=== PATIENT | male | born 1945 | race Caucasian/White ===

== ENCOUNTER → 2023-06-22 11:58 | Outpatient (REF) | payer MEDICARE, OTHER, SELFPAY | LOC: MRI 3T 11:58 | PROVIDERS: ATTENDING PHYSICIAN Orthopaedic Surgery; FAMILY PHYSICIAN Registered Nurse | DX: M25.561 Pain in right knee (principal) | CPT/HCPCS: 73721 ==

== ENCOUNTER → 2023-06-25 07:20 | Outpatient (REF) | payer MEDICARE, OTHER, SELFPAY ==
[2023-06-25 08:02] LABS: % Basophils 0.7 % (0-2); % Immature Granulocytes 0.6 % (0-0.5); % Lymphocytes 27.3 % (20.5-51.1); % Monocytes 11.6 % (1.7-9.3); % Neutrophils 57.8 % (42.2-75.2); Absolute Eosinophils 0.1 10^3/uL (0-0.7); Absolute Lymphocytes 1.5 10^3/uL (1.2-3.4); Absolute Monocytes 0.6 10^3/uL (0.1-0.6); Absolute Neutrophils 3.1 10^3/uL (1.4-6.5); Mean Corp Hgb Conc. 34.1 g/dL (33.0-37.0); Mean Corpuscular Hgb 29.8 pg (27.0-31.0); Mean Corpuscular Volume 87.2 fL (80.0-94.0); Mean Platelet Volume 9.9 fL (7.4-10.4); Nucleated Red Blood Cells % 0 % (-); Platelet Count 165 10^3/uL (130-400); Red Cell Dist. Width 12.4 % (11.5-14.5); White Blood Cell Count 5.4 10^3/uL (4.8-10.8)
[2023-06-25 08:25] LABS: ALT (SGPT) 75 U/L (0-50); AST (SGOT) 46 U/L (17-59); Albumin 3.7 g/dl (3.5-5.0); Alkaline Phosphatase 86 U/L (38-126); Blood Urea Nitrogen 22 mg/dl (9-20); Calcium 9.6 mg/dl (8.4-10.2); Carbon Dioxide 31 mmol/L (22-30); Chloride 100 mmol/L (98-107); Glucose 103 mg/dl (70-99); Potassium 3.6 mmol/L (3.5-5.1); Sodium 139 mmol/L (135-145); Total Bilirubin 0.8 mg/dl (0.2-1.3); Total Protein 7.2 g/dl (6.3-8.2); eGFR 47.65
== END ==
LOC: REG 07:20
PROVIDERS: ATTENDING PHYSICIAN Internal Medicine Gastroenterology; FAMILY PHYSICIAN Registered Nurse
DX: K75.81 Nonalcoholic steatohepatitis (NASH) (principal)
CPT/HCPCS: 36415; 80053; 85025

== ENCOUNTER → 2023-08-06 13:04 | Outpatient (REF) | payer MEDICARE, OTHER, SELFPAY ==
[2023-08-06 13:52] LABS: % Basophils 0.5 % (0-2); % Eosinophils 0.7 % (0-6); % Immature Granulocytes 0.6 % (0-0.5); % Lymphocytes 16.6 % (20.5-51.1); % Neutrophils 71.6 % (42.2-75.2); Absolute Eosinophils 0.1 10^3/uL (0-0.7); Absolute Immature Granulocytes 0.1 10^3/uL (0-0.05); Absolute Lymphocytes 1.5 10^3/uL (1.2-3.4); Absolute Monocytes 0.9 10^3/uL (0.1-0.6); Absolute Neutrophils 6.3 10^3/uL (1.4-6.5); Hemoglobin 14.2 g/dL (13.0-18.0); Mean Corp Hgb Conc. 33.8 g/dL (33.0-37.0); Mean Corpuscular Hgb 29.2 pg (27.0-31.0); Mean Corpuscular Volume 86.4 fL (80.0-94.0); Mean Platelet Volume 9.8 fL (7.4-10.4); Nucleated Red Blood Cells % 0 % (-); Platelet Count 190 10^3/uL (130-400); Red Blood Cell Count 4.86 10^6/uL (4.70-6.10); Red Cell Dist. Width 12.4 % (11.5-14.5); White Blood Cell Count 8.7 10^3/uL (4.8-10.8)
[2023-08-06 14:35] LABS: ALT (SGPT) 64 U/L (0-50); AST (SGOT) 39 U/L (17-59); Albumin 4.5 g/dl (3.5-5.0); Alkaline Phosphatase 110 U/L (38-126); Blood Urea Nitrogen 23 mg/dl (9-20); Calcium 9.7 mg/dl (8.4-10.2); Carbon Dioxide 29 mmol/L (22-30); Chloride 101 mmol/L (98-107); Glucose 91 mg/dl (70-99); Sodium 137 mmol/L (135-145); Total Bilirubin 0.9 mg/dl (0.2-1.3); Total Protein 7.6 g/dl (6.3-8.2); Uric Acid 9.4 mg/dl (3.5-8.5)
[2023-08-06 14:36] LABS: C-Reactive Protein < 5.00 mg/L (0.0-10.00)
[2023-08-06 14:50] LABS: Erythrocyte Sed Rate 18 mm/hour (0-20)
== END ==
LOC: REG 13:04
PROVIDERS: ATTENDING PHYSICIAN Internal Medicine
DX: M79.675 Pain in left toe(s) (principal); Z68.34 Body mass index [BMI] 34.0-34.9, adult
CPT/HCPCS: 36415; 73630; 80053; 84550; 85025; 85652; 86140

== ENCOUNTER → 2023-09-01 10:13 | Outpatient (REF) | payer MEDICARE, OTHER, SELFPAY | LOC: RCS 10:13 | PROVIDERS: ATTENDING PHYSICIAN Nurse Practitioner; FAMILY PHYSICIAN Registered Nurse | DX: I49.3 Ventricular premature depolarization (principal); R00.1 Bradycardia, unspecified | CPT/HCPCS: 93225; 93226 ==

== ENCOUNTER → 2023-10-16 08:40 | Outpatient (REF) | payer MEDICARE, OTHER, SELFPAY | LOC: RCS 08:40 | PROVIDERS: ATTENDING PHYSICIAN Nurse Practitioner; FAMILY PHYSICIAN Registered Nurse | DX: I49.3 Ventricular premature depolarization (principal) | CPT/HCPCS: 93306 ==

== ENCOUNTER → 2023-10-31 07:55 | Outpatient (REF) | payer MEDICARE, OTHER, SELFPAY ==
[2023-10-31 10:00] LABS: ALT (SGPT) 66 U/L (0-50); AST (SGOT) 49 U/L (17-59); Albumin 4.2 g/dl (3.5-5.0); Alkaline Phosphatase 81 U/L (38-126); Blood Urea Nitrogen 25 mg/dl (9-20); Calcium 9.2 mg/dl (8.4-10.2); Carbon Dioxide 31 mmol/L (22-30); Chloride 102 mmol/L (98-107); Glucose 92 mg/dl (70-99); HDL Cholesterol 56 mg/dl; LDL Cholesterol, Calculated 69 mg/dl; Sodium 139 mmol/L (135-145); Total Bilirubin 1.1 mg/dl (0.2-1.3); Total Cholesterol 141 mg/dl (50-199); Total Protein 6.9 g/dl (6.3-8.2); Triglyceride 81 mg/dl (10-149); Uric Acid 11.7 mg/dl (3.5-8.5); Very Low Density Lipoprotein 16 mg/dl (0-30); eGFR 38.29
[2023-10-31 11:09] LABS: Glycohemoglobin (HgbA1c) 5.3 % (4.0-5.6)
== END ==
LOC: REG 07:55
PROVIDERS: ATTENDING PHYSICIAN Registered Nurse
DX: I25.10 Atherosclerotic heart disease of native coronary artery without angina pectoris (principal); I10 Essential (primary) hypertension; R73.03 Prediabetes; N18.31 Chronic kidney disease, stage 3a
CPT/HCPCS: 36415; 80053; 80061; 83036; 84550

== ENCOUNTER → 2024-02-11 09:03 | Outpatient (REF) | payer MEDICARE, OTHER, SELFPAY ==
[2024-02-11 11:14] LABS: Urine Albumin Negative (Neg - Trace); Urine Bilirubin Negative (Negative); Urine Character Clear (Clear); Urine Color Yellow; Urine Glucose Negative (Negative); Urine Ketone Negative (Negative); Urine Leukocyte Negative (Negative); Urine Nitrite Negative (Negative); Urine Occult Blood Negative (Negative); Urine Urobilinogen Negative (Neg - 1+)
[2024-02-11 11:27] LABS: ALT (SGPT) 70 U/L (0-50); AST (SGOT) 44 U/L (17-59); Alkaline Phosphatase 82 U/L (38-126); Blood Urea Nitrogen 28 mg/dl (9-20); Calcium 9.2 mg/dl (8.4-10.2); Carbon Dioxide 32 mmol/L (22-30); Chloride 94 mmol/L (98-107); Glucose 82 mg/dl (70-99); Potassium 3.7 mmol/L (3.5-5.1); Sodium 137 mmol/L (135-145); Total Bilirubin 0.7 mg/dl (0.2-1.3); Total Protein 6.5 g/dl (6.3-8.2); Uric Acid 9.1 mg/dl (3.5-8.5); eGFR 40.75
[2024-02-11 11:35] LABS: % Basophils 0.7 % (0-2); % Eosinophils 1.3 % (0-6); % Immature Granulocytes 1.5 % (0-0.5); % Lymphocytes 26.6 % (20.5-51.1); % Monocytes 10.4 % (1.7-9.3); % Neutrophils 59.5 % (42.2-75.2); Absolute Basophils 0.1 10^3/uL (0-0.2); Absolute Eosinophils 0.1 10^3/uL (0-0.7); Absolute Immature Granulocytes 0.1 10^3/uL (0-0.05); Absolute Lymphocytes 2.3 10^3/uL (1.2-3.4); Absolute Monocytes 0.9 10^3/uL (0.1-0.6); Absolute Neutrophils 5.2 10^3/uL (1.4-6.5); Hematocrit 42.3 % (39.0-52.0); Hemoglobin 14.5 g/dL (13.0-18.0); Mean Corp Hgb Conc. 34.3 g/dL (33.0-37.0); Mean Corpuscular Hgb 29.3 pg (27.0-31.0); Mean Corpuscular Volume 85.5 fL (80.0-94.0); Mean Platelet Volume 10.2 fL (7.4-10.4); Nucleated Red Blood Cells % 0 % (-); Platelet Count 166 10^3/uL (130-400); Red Blood Cell Count 4.95 10^6/uL (4.70-6.10); Red Cell Dist. Width 12.7 % (11.5-14.5); White Blood Cell Count 8.7 10^3/uL (4.8-10.8)
[2024-02-11 12:02] LABS: Protein/creatinine Ratio 0.3; Urine Protein 11 mg/dl
[2024-02-12 10:47] LABS: Intact PTH 46.2 pg/ml (13.6-85.8)
== END ==
LOC: RAD 09:03
PROVIDERS: ATTENDING PHYSICIAN Internal Medicine; FAMILY PHYSICIAN Registered Nurse
DX: N18.31 Chronic kidney disease, stage 3a (principal); I10 Essential (primary) hypertension; G47.33 Obstructive sleep apnea (adult) (pediatric); N18.32 Chronic kidney disease, stage 3b; N28.9 Disorder of kidney and ureter, unspecified
CPT/HCPCS: 36415; 76770; 80053; 81003; 82570; 83970; 84156; 84550; 85025

== ENCOUNTER → 2024-04-21 07:57 | Outpatient (REF) | payer MEDICARE, OTHER, SELFPAY ==
[2024-04-21 09:19] LABS: % Basophils 0.5 % (0-2); % Eosinophils 1.4 % (0-6); % Immature Granulocytes 0.6 % (0-0.5); % Lymphocytes 16.3 % (20.5-51.1); % Monocytes 9.8 % (1.7-9.3); % Neutrophils 71.4 % (42.2-75.2); Absolute Eosinophils 0.1 10^3/uL (0-0.7); Absolute Immature Granulocytes 0.1 10^3/uL (0-0.05); Absolute Lymphocytes 1.3 10^3/uL (1.2-3.4); Absolute Monocytes 0.8 10^3/uL (0.1-0.6); Absolute Neutrophils 5.7 10^3/uL (1.4-6.5); Hematocrit 43.9 % (39.0-52.0); Hemoglobin 14.7 g/dL (13.0-18.0); Mean Corp Hgb Conc. 33.5 g/dL (33.0-37.0); Mean Corpuscular Hgb 29.3 pg (27.0-31.0); Mean Corpuscular Volume 87.6 fL (80.0-94.0); Mean Platelet Volume 10.2 fL (7.4-10.4); Nucleated Red Blood Cells % 0 % (-); Platelet Count 194 10^3/uL (130-400); Red Blood Cell Count 5.01 10^6/uL (4.70-6.10); Red Cell Dist. Width 12.7 % (11.5-14.5)
[2024-04-21 10:11] LABS: ALT (SGPT) 46 U/L (0-50); AST (SGOT) 37 U/L (17-59); Alkaline Phosphatase 108 U/L (38-126); Blood Urea Nitrogen 11 mg/dl (9-20); Calcium 9.4 mg/dl (8.4-10.2); Carbon Dioxide 31 mmol/L (22-30); Chloride 101 mmol/L (98-107); Glucose 93 mg/dl (70-99); HDL Cholesterol 55 mg/dl; LDL Cholesterol, Calculated 55 mg/dl; Phosphorus 3.5 mg/dl (2.5-4.5); Potassium 4.2 mmol/L (3.5-5.1); Sodium 140 mmol/L (135-145); Total Bilirubin 0.7 mg/dl (0.2-1.3); Total Cholesterol 136 mg/dl (50-199); Total Protein 6.5 g/dl (6.3-8.2); Triglyceride 134 mg/dl (10-149); Uric Acid 6.8 mg/dl (3.5-8.5); Very Low Density Lipoprotein 26 mg/dl (0-30); eGFR 51.45
[2024-04-21 10:26] LABS: TSH Reflex To Free T4 1.26 uIU/ml (0.47-4.68)
[2024-04-21 11:09] LABS: Glycohemoglobin (HgbA1c) 5.3 % (4.0-5.6)
[2024-04-22 23:46] LABS: Lamotrigine (Lamictal) 7.7 ug/mL (3.0-15.0)
== END ==
LOC: REG 07:57
PROVIDERS: ATTENDING PHYSICIAN Registered Nurse; FAMILY PHYSICIAN Internal Medicine; REFERRING PHYSICIAN Psychiatry & Neurology Psychiatry
DX: Z51.81 Encounter for therapeutic drug level monitoring (principal); N18.31 Chronic kidney disease, stage 3a; Z87.39 Personal history of other diseases of the musculoskeletal system and connective tissue; I25.10 Atherosclerotic heart disease of native coronary artery without angina pectoris; I10 Essential (primary) hypertension; N18.32 Chronic kidney disease, stage 3b; K75.4 Autoimmune hepatitis; E11.69 Type 2 diabetes mellitus with other specified complication; F32.9 Major depressive disorder, single episode, unspecified
CPT/HCPCS: 36415; 80053; 80061; 80175; 83036; 84100; 84443; 84550; 85025

== ENCOUNTER 2024-07-23 07:26 | Outpatient (RCR) | payer MEDICARE, OTHER, SELFPAY | END 2024-07-23 10:14 | disposition home or self-care (01) | LOC: RPT 07:26 | PROVIDERS: ATTENDING PHYSICIAN Orthopaedic Surgery; FAMILY PHYSICIAN Registered Nurse | DX: M17.11 Unilateral primary osteoarthritis, right knee (principal); Z73.6 Limitation of activities due to disability; R26.2 Difficulty in walking, not elsewhere classified; R26.89 Other abnormalities of gait and mobility; M62.81 Muscle weakness (generalized) | CPT/HCPCS: 97110; 97112; 97140; 97161; 97530 ==

== ENCOUNTER 2024-07-30 06:51 | Inpatient (IN) | payer MEDICARE, OTHER, SELFPAY ==
[2024-07-14 13:57] VITALS: BMI 35.5
[2024-07-14 14:10] LABS: Hematocrit 44.5 % (39.0-52.0); Hemoglobin 14.8 g/dL (13.0-18.0); Mean Corp Hgb Conc. 33.3 g/dL (33.0-37.0); Mean Corpuscular Hgb 28.7 pg (27.0-31.0); Mean Corpuscular Volume 86.2 fL (80.0-94.0); Mean Platelet Volume 10.4 fL (7.4-10.4); Platelet Count 168 10^3/uL (130-400); Red Blood Cell Count 5.16 10^6/uL (4.70-6.10); Red Cell Dist. Width 12.7 % (11.5-14.5); White Blood Cell Count 6.3 10^3/uL (4.8-10.8)
[2024-07-14 14:34] LABS: Glycohemoglobin (HgbA1c) 5.3 % (4.0-5.6)
[2024-07-14 14:43] LABS: ALT (SGPT) 74 U/L (0-50); AST (SGOT) 55 U/L (17-59); Albumin 4.4 g/dl (3.5-5.0); Alkaline Phosphatase 116 U/L (38-126); Blood Urea Nitrogen 17 mg/dl (9-20); Calcium 9.7 mg/dl (8.4-10.2); Carbon Dioxide 27 mmol/L (22-30); Chloride 100 mmol/L (98-107); Estimated Creatinine Clearance 59 ml/min; Glucose 84 mg/dl (70-99); Potassium 4.3 mmol/L (3.5-5.1); Sodium 137 mmol/L (135-145); Total Protein 6.9 g/dl (6.3-8.2); eGFR 56.23
[2024-07-14 15:33] VITALS: BMI 35.5
[2024-07-30] VITALS (19 sets, daily range): BP systolic 121–175; BP diastolic 59–95; PULSE 67; O2SAT 94; BMI 35.5
[2024-07-30] MEDS: CELEBREX 200 MG PO (07:59)
[2024-07-30] MEDS: NORMOSOL-R/PLASMALYTE-A 1000 IV ×2 (07:59→11:30)
[2024-07-30] MEDS: TYLENOL 650 MG PO ×5 (07:59→23:25)
[2024-07-30] MEDS: BACTROBAN NASAL 1 GRAM NASAL (08:02)
--- NOTE | 2024-07-30 08:04 | W.DS.TRANS ---
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
-
Discharge Instructions:
Sleep Apnea Risk High
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
Diet As tolerated
Activity With Walker
Driving Restrictions No driving
Bathing Restrictions OK to Shower
Other Services PT
Instructions:
Stand-Alone Forms: Total Hip/Knee Replacement D/C
Changes to Home Medications: Yes
Discharge Medications:
DC Medications w/original date entered in [employer]
zawxn-1m-pub-epa-fish oil 120 mg-180 mg-60 mg-1,200 mg capsule, DR (Fish Oil) 1,200 mg PO DAILY 12/16/14
omeprazole 40 mg capsule,delayed release (Prilosec) 40 mg PO HS 12/16/14
lamotrigine 100 mg tablet 200 mg (2 x 100 mg) PO Q12 ##0 01/18/15
albuterol sulfate 2.5 mg/3 mL (0.083 %) solution for nebulization 2.5 mg inhalation R Q4HPRN PRN wheeze/cough 02/28/16
aripiprazole 10 mg tablet 5 mg PO HS 02/28/16
txatxxki-vjy-sejii acid 0.4 mg-lycopene 300 mcg-lutein 250 mcg tablet (Centrum Silver) 1 ea PO DAILY 02/28/16
atorvastatin 10 mg tablet 10 mg PO QPM #30 tabs 03/02/16
ascorbic acid (vitamin C) 500 mg tablet (Vitamin C) 1,000 mg (2 x 500 mg) PO BID #56 tabs 04/25/21
famotidine 20 mg tablet 20 mg PO BID #28 tabs 04/25/21
allopurinol 100 mg tablet 50 mg PO DAILY 07/11/24
amlodipine 5 mg tablet 5 mg PO DAILY 07/11/24
aripiprazole 10 mg tablet 10 mg PO DAILY 07/11/24
cholecalciferol (vitamin D3) 50 mcg (2,000 unit) capsule (Vitamin D3) 50 mcg PO DAILY 07/11/24
montelukast 10 mg tablet (Singulair) 10 mg PO DAILY 07/11/24
vibegron 75 mg tablet (Gemtesa) 75 mg PO DAILY 07/11/24
mupirocin 2 % topical ointment 1 applic intranasal BID #1 tube 07/14/24
aspirin 325 mg tablet 325 mg PO DAILY blood clot prevention #1 tab 07/30/24
dexamethasone 4 mg tablet 4 mg PO BID inflammation #6 tabs 07/30/24
docusate sodium 100 mg capsule (Colace) 100 mg PO BID stool softner #1 cap 07/30/24
fluticasone propionate 230 mcg-salmeterol 21 mcg/actuation HFA inhaler (Advair HFA) 2 puff inhalation DAILY 07/30/24
gabapentin 300 mg capsule 300 mg PO HS sleep/pain #10 caps 07/30/24
magnesium hydroxide 400 mg/5 mL oral suspension (Milk of Magnesia) 30 ml PO HS PRN Constipation #1 mL 07/30/24
ondansetron 4 mg disintegrating tablet 4 mg PO Q6H PRN n/v #20 tabs 07/30/24
sennosides 8.6 mg tablet (Senokot) 17.2 mg (2 x 8.6 mg) PO BID laxative #2 tabs 07/30/24
tramadol 50 mg tablet 50 mg PO Q6H PRN 1 tab moderate pain, 2 if severe #30 tabs 07/30/24
Home Medication Changes
mupirocin 2 % topical ointment 1 applic intranasal BID #1 tube 07/14/24
aspirin 325 mg tablet 325 mg PO DAILY blood clot prevention #1 tab 07/30/24
dexamethasone 4 mg tablet 4 mg PO BID inflammation #6 tabs 07/30/24
docusate sodium 100 mg capsule (Colace) 100 mg PO BID stool softner #1 cap 07/30/24
fluticasone propionate 230 mcg-salmeterol 21 mcg/actuation HFA inhaler (Advair HFA) 2 puff inhalation DAILY 07/30/24
gabapentin 300 mg capsule 300 mg PO HS sleep/pain #10 caps 07/30/24
magnesium hydroxide 400 mg/5 mL oral suspension (Milk of Magnesia) 30 ml PO HS PRN Constipation #1 mL 07/30/24
ondansetron 4 mg disintegrating tablet 4 mg PO Q6H PRN n/v #20 tabs 07/30/24
sennosides 8.6 mg tablet (Senokot) 17.2 mg (2 x 8.6 mg) PO BID laxative #2 tabs 07/30/24
tramadol 50 mg tablet 50 mg PO Q6H PRN 1 tab moderate pain, 2 if severe #30 tabs 07/30/24
Pending Results: No
[2024-07-30] MEDS: ULTRAM 50 MG PO (10:29)
[2024-07-30] MEDS: TYLENOL PO (11:27)
--- NOTE | 2024-07-30 13:30 | PTCARENOTE ---
pt admitted to 2S room 2116 at 1315 from the PACU via bed. pt arrived awake and alert, oriented to room, bed controls, call [facility] and plan of care with verbalized understanding. admission database and assessment completed as documented. Right knee
with surgical dressing intact. + neurovascular check to b/l Vika. pt eager to work with therapy and get moving. telemetry placed and reading SR-SB. pt denies pain or discomfort. care ongoing.
[2024-07-30] MEDS: ANCEF 5 IV ×2 (15:59→22:22)
[2024-07-30] MEDS: ASPIRIN 325 MG PO (18:01)
[2024-07-30] MEDS: LIPITOR 10 MG PO (18:01)
--- NOTE | 2024-07-30 18:06 | RESPNOTE ---
received cpap order for patient and spoke to patient about it. patient states he has not worn cpap in years-he has never been able to tolerate it.
[2024-07-30] MEDS: BACTROBAN 2% OINTMENT 1 APPLIC NASAL (20:30)
[2024-07-30] MEDS: PEPCID 20 MG PO (20:30)
[2024-07-30] MEDS: SENOKOT 17.2 MG PO (20:30)
[2024-07-30] MEDS: DECADRON 4 MG IV (20:30)
[2024-07-30] MEDS: COLACE 100 MG PO (20:30)
[2024-07-30] MEDS: LAMICTAL 200 MG PO (20:30)
[2024-07-30] MEDS: PROTONIX 40 MG PO (22:15)
[2024-07-30] MEDS: ABILIFY 5 MG PO (22:15)
[2024-07-30] MEDS: NEURONTIN 300 MG PO (22:15)
[2024-07-31 03:09] VITALS: BP 150/84
[2024-07-31] MEDS: TYLENOL 650 MG PO ×2 (03:55→09:14)
[2024-07-31 08:35] VITALS: BP 141/69
[2024-07-31] MEDS: SINGULAIR 10 MG PO (09:10)
[2024-07-31] MEDS: ABILIFY 10 MG PO (09:10)
[2024-07-31] MEDS: ZYLOPRIM 50 MG PO (09:10)
[2024-07-31] MEDS: SENOKOT 17.2 MG PO (09:10)
[2024-07-31] MEDS: ASPIRIN 325 MG PO (09:12)
[2024-07-31] MEDS: LAMICTAL 200 MG PO (09:12)
[2024-07-31] MEDS: PEPCID 20 MG PO (09:12)
[2024-07-31] MEDS: FLOMAX 0.4 MG PO (09:12)
[2024-07-31] MEDS: COLACE 100 MG PO (09:14)
[2024-07-31] MEDS: BACTROBAN 2% OINTMENT 1 APPLIC NASAL (09:14)
[2024-07-31] MEDS: DECADRON 4 MG IV (09:15)
[2024-07-31] MEDS: ULTRAM 50 MG PO (09:16)
--- NOTE | 2024-07-31 09:46 | CM ---
Addendum entered by Allison Zaman RN 07/31/24 09:48:
Correction: patient's spouse will provide transportation home.
Original Note:
Reviewed the chart notes and spoke with the patient at the bedside. The patient resides with his spouse in a one story home with two steps to enter via rear of home, three via front. The patient reports no DME/VN/SNF use in the past. Patient does
have a rolling walker and cane if needed. The patient confirmed his pharmacy of choice is [facility]. The patient anticipates going to outpatient therapy once medically cleared. Patient plans on going to outpatient PT in the
ambulatory center. The patient's daughter will provide transportation home. CM continues to be available to patient/family and is monitoring medical plan for needs at discharge.
Plan: Discharge to home when medically stable on outpatient therapy when appropriate.
[2024-07-31 10:04] VITALS: BP 131/70; PULSE 56; O2SAT 99
--- NOTE | 2024-07-31 10:11 | W.PN.ORTHO ---
Today's Communication / Plan
-
d/c
Assessment
.
Distal Motor Intact: Yes
Dressing:
Clean, dry and intact.
Assessment:
hx prior p/o sedation and hypotension-Midodrine was added with parameter and opioid were minimized--BP stable -asx this visit
BPH/urinary retention--Flomax added-voiding well
Plan
.
Surgery / Date: R TKA 07/30/24
DVT Prophylaxis: Aspirin
Activity:
Out of bed.
PT/OT
Discharge Plan: Home w/ Outpatient PT
Subjective
.
.:
Patient resting comfortably.
Vital Signs and Labs
.
Vital Signs and Labs:
Lab Results
07/14/24 13:44
07/14/24 13:44
Temp Pulse Resp BP Pulse Ox
97.8 F 58 18 149/69 97
07/31/24 08:35 07/31/24 08:35 07/31/24 08:35 07/31/24 09:13 07/31/24 08:35
Non-invasive Hgb result: 12.1
Physical Exam
-
HEENT: No pallor, cyanosis, or jaundice. Throat clear.
NECK: Supple. No JVD.
RESPIRATORY: Lungs clear to auscultation.
CVS: S1, S2 normal. RRR.� No murmur, rub or gallop.
ABDOMEN: Soft, non-tender. No distension. BS+/normal.
EXTREMITIES: strength equal, no calf pain with palpation
EQUITY TRADER: AOx3. No focal deficits. cook chief grossly intact
[2024-07-31] MEDS: ADVAIR HFA 230/21 MCG INHALER 2 PUFF INH (11:11)
[2024-07-31 11:40] VITALS: BP 152/71
[2024-07-31 11:42] VITALS: BP 126/60; PULSE 53; O2SAT 98
== END 2024-07-31 13:04 | disposition home or self-care (01) | DRG 470 ==
LOC: 2 SOUTH 06:51
PROVIDERS: ADMITTING PHYSICIAN Orthopaedic Surgery; FAMILY PHYSICIAN Registered Nurse
PROC: 0SRC069 Replacement of Right Knee Joint with Oxidized Zirconium on Polyethylene Synthetic Substitute, Cemented, Open Approach (ICD-10-PCS; 2024-07-30)
DX: M17.11 Unilateral primary osteoarthritis, right knee (principal); N40.1 Benign prostatic hyperplasia with lower urinary tract symptoms
CPT/HCPCS: 36415; 73560; 80053; 83036; 85027; 87070; 94640; 97110; 97116; 97162; 97166; 97535; C1713; C1776

== ENCOUNTER 2024-08-27 09:38 | Outpatient (RCR) | payer MEDICARE, OTHER, SELFPAY | END 2024-08-27 23:59 | disposition home or self-care (01) | LOC: RPT 09:38 | PROVIDERS: ATTENDING PHYSICIAN Orthopaedic Surgery; FAMILY PHYSICIAN Registered Nurse | DX: Z47.1 Aftercare following joint replacement surgery (principal); Z73.6 Limitation of activities due to disability; R26.89 Other abnormalities of gait and mobility; M25.561 Pain in right knee; M62.81 Muscle weakness (generalized); Z96.651 Presence of right artificial knee joint | CPT/HCPCS: 97010; 97110; 97112; 97140; 97162 ==

== ENCOUNTER → 2024-08-27 14:11 | Outpatient (REF) | payer MEDICARE, OTHER, SELFPAY | LOC: DHSLP 14:11 | PROVIDERS: ATTENDING PHYSICIAN Registered Nurse | DX: G47.33 Obstructive sleep apnea (adult) (pediatric) (principal) | CPT/HCPCS: 95800 ==

== ENCOUNTER → 2024-09-08 14:31 | Outpatient (REF) | payer MEDICARE, OTHER, SELFPAY | LOC: HWRAD 14:31 | PROVIDERS: ATTENDING PHYSICIAN Internal Medicine Gastroenterology; FAMILY PHYSICIAN Registered Nurse | DX: R10.33 Periumbilical pain (principal) | CPT/HCPCS: 74176 ==

== ENCOUNTER → 2024-09-17 08:18 | Outpatient (REF) | payer MEDICARE, OTHER, SELFPAY ==
[2024-09-17 09:59] LABS: Albumin 4.4 g/dl (3.5-5.0); Blood Urea Nitrogen 13 mg/dl (9-20); Calcium 9.5 mg/dl (8.4-10.2); Carbon Dioxide 31 mmol/L (22-30); Chloride 107 mmol/L (98-107); Glucose 98 mg/dl (70-99); Phosphorus 3.8 mg/dl (2.5-4.5); Potassium 4.2 mmol/L (3.5-5.1); Sodium 142 mmol/L (135-145); eGFR 56.23
[2024-09-17 09:59] LABS: Urine Protein < 5.0 mg/dl
[2024-09-17 10:04] LABS: Intact PTH 34.7 pg/ml (13.6-85.8)
== END ==
LOC: REG 08:18
PROVIDERS: ATTENDING PHYSICIAN Internal Medicine; FAMILY PHYSICIAN Registered Nurse
DX: N18.31 Chronic kidney disease, stage 3a (principal)
CPT/HCPCS: 36415; 80069; 82570; 83970; 84156

== ENCOUNTER 2024-09-19 10:38 | Outpatient (RCR) | payer MEDICARE, OTHER, SELFPAY | END 2024-09-19 15:25 | disposition home or self-care (01) | LOC: RPT 10:38 | PROVIDERS: ATTENDING PHYSICIAN Orthopaedic Surgery; FAMILY PHYSICIAN Registered Nurse | DX: Z47.1 Aftercare following joint replacement surgery (principal); Z73.6 Limitation of activities due to disability; R26.89 Other abnormalities of gait and mobility; M25.561 Pain in right knee; M62.81 Muscle weakness (generalized); Z96.651 Presence of right artificial knee joint | CPT/HCPCS: 97010; 97110; 97112 ==

== ENCOUNTER → 2024-10-17 12:18 | Outpatient (REF) | payer MEDICARE, OTHER, SELFPAY | LOC: PAVMRI 12:18 | PROVIDERS: ATTENDING PHYSICIAN Physician Assistant; FAMILY PHYSICIAN Registered Nurse | DX: M54.50 Low back pain, unspecified (principal) | CPT/HCPCS: 72148 ==

== ENCOUNTER → 2024-10-24 16:28 | Outpatient (REF) | payer MEDICARE, OTHER, SELFPAY | LOC: RAD 16:28 | PROVIDERS: ATTENDING PHYSICIAN Physician Assistant; FAMILY PHYSICIAN Registered Nurse | DX: R22.41 Localized swelling, mass and lump, right lower limb (principal); R06.00 Dyspnea, unspecified; M79.661 Pain in right lower leg; Z96.651 Presence of right artificial knee joint | CPT/HCPCS: 93971 ==

== ENCOUNTER 2024-11-20 07:13 | Outpatient (RCR) | payer MEDICARE, OTHER, SELFPAY | END 2024-11-27 11:17 | disposition home health service (06) | LOC: RPT 07:13 | PROVIDERS: ATTENDING PHYSICIAN Physician Assistant; FAMILY PHYSICIAN Registered Nurse | DX: M54.16 Radiculopathy, lumbar region (principal); M48.061 Spinal stenosis, lumbar region without neurogenic claudication; M43.06 Spondylolysis, lumbar region; Z73.6 Limitation of activities due to disability | CPT/HCPCS: 97110; 97162 ==

== ENCOUNTER → 2025-03-05 06:59 | Outpatient (REF) | payer MEDICARE, OTHER, SELFPAY ==
[2025-03-05 08:17] LABS: Hematocrit 41.7 % (39.0-52.0); Hemoglobin 14.5 g/dL (13.0-18.0); Mean Corp Hgb Conc. 34.8 g/dL (33.0-37.0); Mean Corpuscular Volume 85.3 fL (80.0-94.0); Nucleated Red Blood Cells % 0 % (-); Platelet Count 181 10^3/uL (130-400); Red Cell Dist. Width 12.3 % (11.5-14.5)
[2025-03-05 08:54] LABS: ALT (SGPT) 76 U/L (0-50); AST (SGOT) 44 U/L (17-59); Albumin 4.1 g/dl (3.5-5.0); Alkaline Phosphatase 101 U/L (38-126); Blood Urea Nitrogen 16 mg/dl (9-20); Calcium 9.0 mg/dl (8.4-10.2); Carbon Dioxide 29 mmol/L (22-30); Chloride 104 mmol/L (98-107); Glucose 85 mg/dl (70-99); Potassium 4.2 mmol/L (3.5-5.1); Sodium 139 mmol/L (135-145); Total Protein 6.7 g/dl (6.3-8.2); eGFR 55.88
[2025-03-05 09:16] LABS: Calcium 9.2 mg/dl (8.4-10.2)
== END ==
LOC: REG 06:59
PROVIDERS: ATTENDING PHYSICIAN Internal Medicine; FAMILY PHYSICIAN Registered Nurse; REFERRING PHYSICIAN Internal Medicine Gastroenterology
DX: N18.31 Chronic kidney disease, stage 3a (principal); K76.0 Fatty (change of) liver, not elsewhere classified
CPT/HCPCS: 36415; 80053; 83970; 85025

== ENCOUNTER → 2025-04-08 09:07 | Outpatient (REF) | payer MEDICARE, OTHER, SELFPAY ==
[2025-04-08 10:22] LABS: Hematocrit 45.4 % (39.0-52.0); Hemoglobin 15.6 g/dL (13.0-18.0); Mean Corp Hgb Conc. 34.4 g/dL (33.0-37.0); Mean Corpuscular Volume 87.3 fL (80.0-94.0); Nucleated Red Blood Cells % 0 % (-); Platelet Count 188 10^3/uL (130-400); Red Cell Dist. Width 12.0 % (11.5-14.5)
[2025-04-08 10:39] LABS: Glycohemoglobin (HgbA1c) 5.1 % (4.0-5.9)
[2025-04-08 10:43] LABS: Urine Character Clear (Clear)
[2025-04-08 10:46] LABS: ALT (SGPT) 93 U/L (0-50); AST (SGOT) 53 U/L (17-59); Albumin 4.3 g/dl (3.5-5.0); Alkaline Phosphatase 107 U/L (38-126); Blood Urea Nitrogen 16 mg/dl (9-20); Calcium 9.5 mg/dl (8.4-10.2); Carbon Dioxide 32 mmol/L (22-30); Chloride 102 mmol/L (98-107); Glucose 88 mg/dl (70-99); HDL Cholesterol 63 mg/dl; LDL Cholesterol, Calculated 122 mg/dl; Potassium 4.4 mmol/L (3.5-5.1); Sodium 137 mmol/L (135-145); Total Protein 7.3 g/dl (6.3-8.2); Uric Acid 6.8 mg/dl (3.5-8.5); Very Low Density Lipoprotein 13 mg/dl (0-30); eGFR 47.06
[2025-04-08 11:35] LABS: Urine Urothelial Cell 0-2 /LPF (FEW)
[2025-04-08 16:44] LABS: PSA, Total - Screen 1.99 ng/ml (0.0-4.0)
== END ==
LOC: REG 09:07
PROVIDERS: ATTENDING PHYSICIAN Registered Nurse
DX: Z12.5 Encounter for screening for malignant neoplasm of prostate (principal); Z00.00 Encounter for general adult medical examination without abnormal findings; I25.10 Atherosclerotic heart disease of native coronary artery without angina pectoris; I10 Essential (primary) hypertension; I49.3 Ventricular premature depolarization; R73.03 Prediabetes; F31.76 Bipolar disorder, in full remission, most recent episode depressed; N18.31 Chronic kidney disease, stage 3a; N40.1 Benign prostatic hyperplasia with lower urinary tract symptoms
CPT/HCPCS: 36415; 80053; 80061; 81003; 81015; 83036; 84443; 84550; 85025; G0103